=== PATIENT | male | born 1995 | race Asian ===

== ENCOUNTER 2021-11-07 13:25 | Emergency (ER) | payer OTHER ==
[~2021-11-07] VITALS: Ht 182.9 cm; Wt 107.5 kg
[2021-11-07 13:57] LABS: PLATELET COUNT 202 K/uL (142-355)
[2021-11-07 14:02] LABS: POTASSIUM 3.4 mmol/L (3.6-5.2)
[2021-11-07 14:07] LABS: PARTIAL THROMBOPLASTIN TIME 28.3 SECONDS (24.5-33.6)
[2021-11-07 16:01] VITALS: BP 114/71; TEMP 98
== END 2021-11-07 19:54 | disposition home or self-care (01) ==
LOC: ED 13:25
PROVIDERS: Hospitalist
DX: R07.89 Other chest pain (principal); J45.998 Other asthma; F17.210 Nicotine dependence, cigarettes, uncomplicated
CPT/HCPCS: 80053; 82550; 83880; 84484; 85027; 85379; 85610; 85730; 93005; 96360; 96374; 96375; 99284; J1885; J2930